=== PATIENT | female | born 1970 | race African-American/Black ===

== ENCOUNTER 2016-12-02 23:29 | Emergency (ER) | payer SELFPAY ==
[2016-12-03 00:07] LABS: Mean Platelet Volume 7.3 fL (7.4-10.4); Red Blood Cell (RBC) Count 5.02 mill/uL (4.20-5.40); White Blood Cell (WBC) Count 9.1 thou/uL (4.8-10.8)
[2016-12-03 00:19] LABS: ALT (SGPT) 28 U/L (8-55); AST (SGOT) 17 U/L (5-34); Alkaline Phosphatase 83 U/L (40-150); Anion Gap 11 mmol/L (10-20); BUN (Urea Nitrogen) 11 mg/dL (7.0-18.7); Bilirubin, Total 0.3 mg/dL (0.2-1.2); CK (CPK) 194 U/L (29-168); Calc. Creatinine Clearance 0 mL/min (70-130); Calcium 8.7 mg/dL (7.8-10.44); Carbon Dioxide 23 mmol/L (22-29); Chloride 106 mmol/L (98-107); Estimated GFR-MDRD Greater than 90; Globulin 4.6 g/dL (2.4-3.5); Lipase 36 U/L (8-78); Protein, Total 8.3 g/dL (6.0-8.3)
[2016-12-03 00:21] LABS: Band 2 % (5-11); Neutrophil 40 % (42-75)
[2016-12-03] MEDS ORDERED: Lidocaine Viscous Sol 2% 15 ml UD Cup ONE (00:21)
[2016-12-03] MEDS ORDERED: Mag-Al 1200 mg/1200 mg/30 ML UDCUP ONE (00:21)
[2016-12-03] MEDS ORDERED: Pantoprazole 40 MG VIAL ONE (00:21)
[2016-12-03 00:23] LABS: Troponin I Less than 0.010 ng/mL (< 0.028)
[2016-12-03] MEDS ORDERED: Lorazepam 2 MG/ML VIAL ONE (01:11)
--- NOTE | 2016-12-03 07:45 | RAD ---
PORTABLE CHEST: Date: 12/03/16 HISTORY: Chest pain. FINDINGS: Lungs are clear. Heart and mediastinum unremarkable. IMPRESSION: No acute findings. POS: [facility]
== END 2016-12-03 03:15 | disposition home or self-care (01) ==
LOC: ERS 23:29
DX: R07.89 Other chest pain (principal); K21.9 Gastro-esophageal reflux disease without esophagitis; F41.9 Anxiety disorder, unspecified; F32.9 Major depressive disorder, single episode, unspecified; Z79.899 Other long term (current) drug therapy
CPT/HCPCS: 71010; 80053; 82550; 82553; 83690; 83880; 84484; 85025; 93005; 96374; 96375; C9113; J2060

== ENCOUNTER 2017-12-07 16:03 | Outpatient (CLI) | payer OTHER ==
--- NOTE | 2017-12-07 17:34 | RAD ---
LUMBAR SPINE 2 VIEWS: Date: 12/07/17 HISTORY: Back pain. FINDINGS: Comparison made with exam of 02/25/16. Five lumbar-type vertebrae are present. No fracture, subluxation, or bony destruction seen. There are mild degenerative changes in the lower lumbar spine, which were also seen on the previous study. IMPRESSION: Mild lumbar spondylosis. POS: [facility]
--- NOTE | 2017-12-07 18:43 | RAD ---
TWO VIEWS OF THE LEFT KNEE 12/07/17 COMPARISON: 11/25/10 HISTORY: [facility] exam with left knee pain. FINDINGS: Two views of the left knee shows the patient to be status post ACL repair of the left knee. No periha rdware lucency is seen. No degenerative changes are present. There is no evidence of acute fracture o r dislocation. There is anterior subluxation of the femur in relation to the tibia. This may be posit ional. IMPRESSION: No evidence of acute osseous abnormality of the left knee. POS: [facility]
== END 2017-12-07 16:04 | disposition home or self-care (01) ==
LOC: BICRAD 16:03
PROVIDERS: ATTEND Internal Medicine
DX: M25.562 Pain in left knee (principal); M54.5 Low back pain; M47.816 Spondylosis without myelopathy or radiculopathy, lumbar region
CPT/HCPCS: 72100

== ENCOUNTER 2018-03-17 20:35 | Emergency (ER) | payer SELFPAY | END 2018-03-17 22:15 | disposition home or self-care (01) | LOC: ERS 20:35 | DX: M62.830 Muscle spasm of back (principal); R03.0 Elevated blood-pressure reading, without diagnosis of hypertension; K21.9 Gastro-esophageal reflux disease without esophagitis; F41.9 Anxiety disorder, unspecified; F31.9 Bipolar disorder, unspecified; Z79.899 Other long term (current) drug therapy | CPT/HCPCS: 99283 ==